=== PATIENT | female | born 1985 | race Caucasian/White ===

== ENCOUNTER 2022-08-01 10:18 | Outpatient (CLI) | payer OTHER, SELFPAY ==
--- OUTSIDE RECORDS SUMMARY | 2022-08-01 10:21 | XMS_ITS ---
:1985 Author Organization [facility] Address [address] [place] [address] Care Team Providers Name Role Phone Elodia Chakraborty Unavailable Unavailable PROBLEMS Unknown Problems ALLERGIES No Information IMMUNIZATIONS No Known Immunizations SOCIAL HISTORY Never Assessed REASON FOR REFERRAL FUNCTIONAL STATUS PLAN OF CARE VITAL SIGNS MEDICATIONS Unknown Medications PROCEDURES No Known procedures RESULTS No Results REASON FOR VISIT Insurance Providers [facility] Member Patient Patient Patient Patient Patient Subscriber Subscriber Subscriber Group Insurance Plan Plan Plan Plan ID Relationship Address Phone Name Date of ID Name Date of No Type Insurance Insurance Insurance Coverage to Subscriber Address Phone Name Dates Medica [address] self Felisha [id number] [phone] (Ins. [id number] Salt (Ins. Bryan Bill) [facility] [id number]
[2022-08-01 13:45] LABS: Cholesterol* 218 mg/dL (90-199)
[2022-08-01 13:46] LABS: HDL Cholesterol* 73 mg/dL (>=50); LDL Cholesterol Calculated 133 mg/dL (<100); Triglycerides* 59 mg/dL (40-149)
[2022-08-01 14:28] LABS: Vitamin D 25 Hydroxy* 31 ng/mL (30-80)
== END 2022-08-01 10:19 | disposition home or self-care (01) ==
PROVIDERS: PCP Physician Assistant Medical; Visit Provider Physician Assistant Medical
DX: Z00.00 Encounter for general adult medical examination without abnormal findings (principal); E78.5 Hyperlipidemia, unspecified; N39.3 Stress incontinence (female) (male); Z13.29 Encounter for screening for other suspected endocrine disorder; Z13.21 Encounter for screening for nutritional disorder; R42 Dizziness and giddiness; F41.9 Anxiety disorder, unspecified; F32.A Depression, unspecified
CPT/HCPCS: 80061; 82306; 84443

== ENCOUNTER 2023-12-22 08:45 | Outpatient (CLI) | payer OTHER, SELFPAY ==
--- OUTSIDE RECORDS SUMMARY | 2023-12-22 17:58 | XMS_ITS | Encounter Summary ---
Author Organization [place] Address [address] [place] [address]. 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 Hold For Preauthorization: Aleshia Kearns GC [address] [place] [address] Referral ID Status Reason Start Date Expiration Date V isits Requested Visits Authorized [id number] Pending Review 12/06/2023 12/05/2024 1 1 Reason for Visit * Reason Onset Date Comments Clinic Care Coordination - Follow-up 12/06/2023 Redraw needed Encounter Details Date Type Department Care Team (Late st Contact Info) Description 12/06/2023 Telephone [facility] Maternal Medicine [facility] [address] [place] [address] Aleshia Kearns GC [address] [place] [address] Clinic Care Coordination - Follow-up (Redraw needed) Social History Tobacco Use Types Packs/Day Years Used Date Smoking Tobacco: Never Smokeless Tobacco: Never Alcohol Use Standard Drinks/Week Comments Not Currently 1 (1 standard drink = 0.6 oz pur e alcohol) [place] Depression Scale Answer Date Recorded Last EPDS Total Score Not on file 11/12/2021 The thought of harming myself has occurred to me . 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 I contacted [facility] outpatient lab to provide this information and ensure they draw correct tube at redraw. I called Felisha and left a voicemail that a redraw is needed. A new order is placed. 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
--- OUTSIDE RECORDS SUMMARY | 2023-12-22 17:58 | XMS_ITS | Encounter Summary ---
Author Organization [place] Address [address] [place] [address]. [place] [address] Care Team Providers Care Shadow Graph Weight Operator Name Role Phone Gemma Thomson PA-C Primary Care Provider Garett Paulino MD Unavailable [phone] Encounter Details Date Type Department Care Team (Late st Contact Info) Description 10/25/2023 [facility] Medical Advice [facility] [address] [place] [address] Adam Paris Social History Tobacco Use Types Packs/Day Years Used Date Smoking Tobacco: Never Smokeless Tobacco: Never Alcohol Use Standard Drinks/Week Comments Not Currently 1 (1 standard drink = 0.6 oz pur e alcohol) Kelly Depression Scale Answer Date Recorded Last EPDS [...] file Travel History Travel Start Travel End [place] 11/03/2023 12/04/2023 documented as of this encounter Plan of Treatment Not on file documented as of this encounter Visit Diagnoses Not on filedocumented in this encounter Care Teams Shadow Graph Weight Operator Relationship Specialty Start Date End Date Gemma Thomson PA-C [facility] [address] [place], [place] [id number] PCP - General Physician Bowling Teacher 09/07/20 Garett Paulino MD [address] [place] [address] Assigned Pediatric Specialist Provider 08/04/23 documented as of this encounter
--- OUTSIDE RECORDS SUMMARY | 2023-12-22 17:58 | XMS_ITS | Encounter Summary ---
Author Organization [place] Address [address] [place] [address]. [place] [address] Care Team Providers Care Educational Manager Name Role Phone Gemma Thomson PA-C Primary Care Provider Garett Paulino MD Unavailable [phone] Encounter Details Date Type Department Care Team (Latest Contact Info) Description 12/22/2023 Travel Social History Tobacco Use Types Packs/Day Years Used Date Smoking Tobacco: Never Smokeless Tobacco: Never Alcohol Use Standard Drinks/Week Comments Not Currently 1 (1 standard drink = 0.6 oz pur e alcohol) [place] Depression Scale Answer Date Recorded Last EPDS [...] file Travel History Travel Start Travel End [place] 11/03/2023 12/04/2023 documented as of this encounter Plan of Treatment Not on file documented as of this encounter Visit Diagnoses Not on filedocumented in this encounter Care Teams Educational Manager Relationship Specialty Start Date End Date Gemma Thomson PA-C [facility] [address] [place] [address] PCP - General Physician Collar Packer 09/07/20 Garett Paulino MD [address] [place] [address] Assigned Pediatric Specialist Provider 08/04/23 documented as of this encounter
--- OUTSIDE RECORDS SUMMARY | 2023-12-22 17:58 | XMS_ITS | Encounter Summary ---
Author Organization [place] Address [address] [place] [address]. [place] [address] Care Team Providers Care Contract Administration Specialist Name Role Phone Gemma Thomson PA-C Primary Care Provider Garett Paulino MD Unavailable Encounter Details Date Type Department Care Team (Late st Contact Info) Description 11/22/2023 Telephone [facility] [address] [place] [address] Adam Paris Social History Tobacco Use Types Packs/Day Years Used Date Smoking Tobacco: Never Smokeless Tobacco: Never Alcohol Use Standard Drinks/Week Comments Not Currently 1 (1 standard drink = 0.6 oz pur e alcohol) [place] Depression Scale Answer Date Recorded Last EPDS [...] file Travel History Travel Start Travel End [place] 11/03/2023 12/04/2023 documented as of this encounter Progress Notes * Adam Paris - 11/22/2023 4:09 PM CDT I called Felisha to follow up on previous messages left regarding the prior authorization for her genetic testing. No authorization is required. However, I was unable to reach Felisha and left her a voice message with my name, direct line, and brief reason for my call. Adam Paris Genomics Billing Filter Helper [facility] Molecular Diagnostics Laboratory [facility] [address] [facility] [place] [address] [email or web address] Office: [phone] Fax: Employed by [place] [employer] documented in this encounter Plan of Treatment Not on file documented as of this encounter Visit Diagnoses Not on filedocumented in this encounter Care Teams Contract Administration Specialist Relationship Specialty Start Date End Date Gemma Thomson PA-C [facility] [address] [place] [address] PCP - General Physician Conveyor Attendant 09/07/20 Garett Paulino MD [facility] [place] [address] Assigned Pediatric Specialist Provider 08/04/23 documented as of this encounter
--- OUTSIDE RECORDS SUMMARY | 2023-12-22 17:58 | XMS_ITS | Encounter Summary ---
Author Organization [place] Address [address] [place] [address]. [place] [address] Care Team Providers Care Printed Circuit Board Layout Designer Name Role Phone Gemma Thomson PA-C Primary Care Provider Lise Rodriguez MD Unavailable [phone] Dio Miramontes MD Unavailable [phone] Garett Paulino MD Unavailable Encounter Details Date Type Department Care Team (Late st Contact Info) Description 10/15/2021 External Order Results [facility] [address] [place] [address] Outside, Provider Social History Tobacco Use Types Packs/Day Years Used Date Smoking Tobacco: Never Smokeless Tobacco: Never Alcohol Use Standard Drinks/Week Comments Yes 1 (1 standard drink = 0.6 oz pur e alcohol) 4x weekly Comments Yes Sex and Gender Information Value Date Recorded Sex Assigned at Not on file Gender Identity Not on file Sexual Orientation Not on file Travel History Travel Start Travel End [place] 11/03/2023 12/04/2023 COVID-19 Exposure Response Date Recorded In the last 10 days, have yo u been in contact with someone who was confirmed or suspected to have Coronavirus/COVID-19? No / Unsure 09/24/2021 11:01 AM CDT documented as of this encounter Plan of Treatment Not on file documented as of this encounter Procedures Procedure Name Priority Date/Time Associated Diagnosis Comments GROUP B STREPTOCOCCUS (EXTERNAL RESULT) Routine 10/15/2021 4:31 PM CDT HEMOGLOBIN Routine 10/15/2021 4:31 PM CDT documented in this encounter Results * Hemoglobin (10/15/2021 4:31 PM CDT) Hemoglobin (External) 12.7 12.0 - 15.0 G/DL NON-INTERFACED (ONBASE SCANS) Comment:FINGERSTICK HEMOGLOB IN Blood 10/15/2021 4:31 PM CDT Narrative [facility] - 10/29/2021 11:14 AM CDT Verified by Marleni Valencia on 10/29/2021. Provider Outside LAB - BLOOD ORDERABL ES [facility] PFT NON-INTERFACED (ONBASE SCANS) * (ABNORMAL) Group B Streptococcus (External Result) (10/15/2021 4:31 PM CDT) Group B Streptococcus (External) Positive( A) NEGATIVE NON-INTERFACE D (ONBASE SCANS) 10/15/2021 4:31 PM CDT Narrative [facility] - 10/29/2021 11:14 AM CDT Verified by Marleni Valencia on 10/29/2021. Provider Outside LAB - HIM EXTERNAL R ESULT BREEZE PFT NON-INTERFACED (ONBASE SCANS) documented in this encounter Visit Diagnoses Not on filedocumented in this encounter Care Teams Printed Circuit Board Layout Designer Relationship Specialty Start Date End Date Gemma Thomson PA-C [facility] [address] [place] [address] PCP - General Physician Skoog Patching Machine Operator 09/07/20 Lise Rodriguez MD [address] [address] Assigned OBGYN Provider 07/11/21 Dio Miramontes MD [address] [place] [address] Assigned OBGYN Provider 01/08/2203/31 Garett Paulino MD [address] [place] [address] Assigned Pediatric Specialist Provider 08/04/23 documented as of this encounter
--- OUTSIDE RECORDS SUMMARY | 2023-12-22 17:58 | XMS_ITS | Encounter Summary ---
Author Organization [place] Address [address] [place] [address]. [place] [address] Care Team Providers Care Dynamite Cartridge Crimper Name Role Phone Gemma Thomson PA-C Primary Care Provider Garett Paulino MD Unavailable Reason for Visit * Reason Onset Date Comments Clinic Care Coordination - Follow-up 11/01/2023 Prior authorization request Encounter Details Date Type Department Care Team (Late st Contact Info) Description 11/01/2023 Telephone [facility] [place] [address] [facility] [address] [place] [address] Aleshia Kearns, GC [address] [place] [address] Clinic Care Coordination - Follow-up (Prior authorization request) Social History Tobacco Use Types Packs/Day Years Used Date Smoking Tobacco: Never Smokeless Tobacco: Never Alcohol Use Standard Drinks/Week Comments Not Currently 1 (1 standard drink = 0.6 oz pur e alcohol) [place] Depression Scale Answer Date Recorded Last EPDS [...] Travel Start Travel End [place] 11/03/2023 12/04/2023 documented as of this encounter Miscellaneous Notes * Telephone Encounter - Aleshia Kearns GC - 11/01/2023 3:06 PM CDT November 01, 2023 I called Felisha and left her a voicemail regarding prior authorization for genetic testing. Shared that there is a letter regarding cost for familial variant testing in her Mychart. If she has questions, she can call me back. Aleshia Kearns, MS, [facility] Licensed Genetic Counselor [facility] Pager: [phone] Office: [phone] documented in this encounter Plan of Treatment Not on file documented as of this encounter Visit Diagnoses Not on filedocumented in this encounter Care Teams Dynamite Cartridge Crimper Relationship Specialty Start Date End Date Gemma Thomson PA-C [facility] [address] [place] [address] PCP - General Physician Shell Freezing Machine Operator 09/07/20 Garett Paulino MD [facility] [address] [address] Assigned Pediatric Specialist Provider 08/04/23 documented as of this encounter
--- OUTSIDE RECORDS SUMMARY | 2023-12-22 17:58 | XMS_ITS | Encounter Summary ---
Author Organization [place] Address [address] [place] [address]. [place] [address] Care Team Providers Care Manager Of Program Name Role Phone Gemma Thomson PA-C Primary Care Provider Gaertt Paulino MD Unavailable [phone] Encounter Details Date Type Department Care Team (Latest Contact Info) Description 12/04/2023 Travel Social History Tobacco Use Types Packs/Day Years Used Date Smoking Tobacco: Never Smokeless Tobacco: Never Alcohol Use Standard Drinks/Week Comments Not Currently 1 (1 standard drink = 0.6 oz pur e alcohol) [place] Depression Scale Answer Date Recorded Last EPDS [...] on filedocumented in this encounter Care Teams Manager Of Program Relationship Specialty Start Date End Date Gemma Thomson PA-C [facility] [address] [place] [address] PCP - General Physician Design Engineering Technician 09/07/20 Garett Paulino MD [address] [place] [address] Assigned Pediatric Specialist Provider 08/04/23 documented as of this encounter
--- OUTSIDE RECORDS SUMMARY | 2023-12-22 17:58 | XMS_ITS | Encounter Summary ---
Author Organization [place] Address [address] [place] [address]. [place] [address] Care Team Providers Care Straightener And Aligner Name Role Phone Gemma Thomson PA-C Primary Care Provider Garett Paulino MD Unavailable Encounter Details Date Type Department Care Team (Late st Contact Info) Description 11/02/2023 Telephone [facility] [address] [place] [address] Adam Paris Social History Tobacco Use Types Packs/Day Years Used Date Smoking Tobacco: Never Smokeless Tobacco: Never Alcohol Use Standard Drinks/Week Comments Not Currently 1 (1 standard drink = 0.6 oz pur e alcohol) [place] Depression Scale Answer Date Recorded Last EPDS [...] file Travel History Travel Start Travel End [place] 11/03/2023 12/04/2023 documented as of this encounter Progress Notes * Adam Paris - 11/02/2023 2:06 PM CDT I called Felisha to follow up on the insurance update for her genetic testing as I have not heard from patient. However, I was unable to reach Felisha. I left a voicemail with my name, phone number, and a brief reason for calling. Adam Paris Genomics Billing Health Assistant [facility] Molecular Diagnostics Laboratory [facility] [address] [facility] [address] [place] [address] [email or web address] Office: [phone] Fax: Employed by [employer] documented in this encounter Plan of Treatment Not on file documented as of this encounter Visit Diagnoses Not on filedocumented in this encounter Care Teams Straightener And Aligner Relationship Specialty Start Date End Date Gemma Thomson PA-C [facility] [address] [place] [address] PCP - General Physician Magnetic Resonance Technologist 09/07/20 Garett Paulino MD [address] [place] [address] Assigned Pediatric Specialist Provider 08/04/23 documented as of this encounter
--- OUTSIDE RECORDS SUMMARY | 2023-12-22 17:58 | XMS_ITS | Encounter Summary ---
Author Organization [facility] Address [address] [place] [address]. [place] [address] Care Team Providers Care Insurance Agency Sales Manager Name Role Phone Gemma Thomson PA-C Primary Care Provider Lise Rodriguez MD Unavailable [phone] Dio Miramontes MD Unavailable [phone] Garett Paulino MD Unavailable [phone] Encounter Details Date Type Department Care Team (Late st Contact Info) Description 04/23/2021 External Order Results [facility] [address] [place] [address] Outside, Provider Social History Tobacco Use Types Packs/Day Years Used Date Smoking Tobacco: Never Smokeless Tobacco: Never Alcohol Use Standard Drinks/Week Comments Yes 1 (1 standard drink = 0.6 oz pur e alcohol) 4x weekly Sex and Gender Information Value Date Recorded Sex Assigned at Not on file Gender Identity Not on file Sexual Orientation Not on file Travel History Travel Start Travel End [place] 11/03/2023 12/04/2023 documented as of this encounter Plan of Treatment Not on file documented as of this encounter Procedures Procedure Name Priority Date/Time Associated Diagnosis Comments HEPATITIS B SURFACE ANTIGEN (EXTERNAL RESULT) Routine 04/23/2021 4:17 PM FINANCIAL AID ADMINISTRATOR URINE CULTURE (OB EXTERNAL RESULT) Routine 04/23/2021 4:17 PM FINANCIAL AID ADMINISTRATOR TREPONEMA PALLIDUM ANTIBODY (RPR) (EXTERNAL RESULT) Routine 04/23/2021 4:17 PM FINANCIAL AID ADMINISTRATOR ABO & RH (EXTERNAL RESULT) Routine 04/23/2021 4:17 PM FINANCIAL AID ADMINISTRATOR GONORRHEA (EXTERNAL RESULT) Routine 04/23/2021 4:17 PM FINANCIAL AID ADMINISTRATOR CHLAMYDIA TRACHOMATIS PCR (EXTERNAL RESULT) Routine 04/23/2021 4:17 PM FINANCIAL AID ADMINISTRATOR HIV ANTIGEN ANTIBODY COMBO Routine 04/23/2021 4:17 PM FINANCIAL AID ADMINISTRATOR CBC WITH PLATELETS & DIFFERENTIAL Routine 04/23/2021 4:17 PM FINANCIAL AID ADMINISTRATOR HEPATITIS C ANTIBODY Routine 04/23/2021 4:17 PM FINANCIAL AID ADMINISTRATOR documented in this encounter Results * ABO & RH (External Result) (04/23/2021 4:17 PM FINANCIAL AID ADMINISTRATOR) ABO (External) A NON-I NTERFACE D (ONBASE SCANS) Rh (External) Positive NON-IN TERFACE D (ONBASE SCANS) Comment:Antibody Screen: Neg ative 04/23/2021 4:17 PM FINANCIAL AID ADMINISTRATOR Narrative BREEZE PFT - 05/10/2021 7:45 AM FINANCIAL AID ADMINISTRATOR Verified by Lino Mondragon on 05/10/2021. Patient Reported LAB - HIM EXTERNAL R ESULT JSSara PFT NON-INTERFACED (ONBASE SCANS) * Urine Culture (OB External Result) (04/23/2021 4:17 PM FINANCIAL AID ADMINISTRATOR) Urine Culture OB Nurse Interpretation (External Result) No growth NON-INTERF AC ED (ONBASE SCANS) 04/23/2021 4:17 PM FINANCIAL AID ADMINISTRATOR Narrative BREEZE PFT - 05/10/2021 7:45 AM FINANCIAL AID ADMINISTRATOR Verified by Lino Mondragon on 05/10/2021. Patient Reported LAB - HIM EXTERNAL R ESULT BREEZE PFT NON-INTERFACED (ONBASE SCANS) * Gonorrhea (External Result) (04/23/2021 4:17 PM FINANCIAL AID ADMINISTRATOR) [facility] N Gonorrhea PCR Negative NEGATIVE NON-INTERFACE D (ONBASE SCANS) 04/23/2021 4:17 PM FINANCIAL AID ADMINISTRATOR Narrative BREEZE PFT - 05/10/2021 7:45 AM FINANCIAL AID ADMINISTRATOR Verified by Lino Mondragon on 05/10/2021. Patient Reported LAB - HIM EXTERNAL R ESULT Performing Organization Address City/[facility]/ZIP Co de Phone Number BREEZE PFT NON-INTERFACED (ONBASE SCANS) * Chlamydia Trachomatis PCR (External Result) (04/23/2021 4:17 PM FINANCIAL AID ADMINISTRATOR) [facility] Chlamydia Trachomatis PCR Negative NEGATIVE NON-INTERFAC E D (ONBASE SCANS) 04/23/2021 4:17 PM FINANCIAL AID ADMINISTRATOR Narrative BREEZE PFT - 05/10/2021 7:45 AM FINANCIAL AID ADMINISTRATOR Verified by Lino Mondragon on 05/10/2021. Patient Reported LAB - HIM EXTERNAL R ESULT Performing Organization Address City/[facility] Co de Phone Number BREEZE PFT NON-INTERFACED (ONBASE SCANS) * (ABNORMAL) CBC with Platelets & Differential (04/23/2021 4:17 PM FINANCIAL AID ADMINISTRATOR) [facility] WBC Count (External) 6.7 4.3 - 10.8 K/ul NON-INTERFACE D (ONBASE SCANS) RBC Count (External) 3.75(L) 4.20 - 5.40 M/ul NON-INTERFACE D (ONBASE SCANS) Hemoglobin (External) 12.3 12.0 - 16.0 g/dl NON-INTERFACE D (ONBASE SCANS) Hematocrit (External) 35.7(L) 36.0 - 48.0 % NON-INTERFACE D (ONBASE SCANS) MCV (External) 95 80 - 100 fl NON-INTERFACE D (ONBASE SCANS) MCH (External) 33 27 - 33 pg NON- INTERFACE D (ONBASE SCANS) MCHC (External) 35 33 - 36 g/dl NON-INTERFACE D (ONBASE SCANS) RDW (External) 12.0 11.5 - 14.5 % NON-INTERFACE D (ONBASE SCANS) Platelet Count (External) 217 150 - 400 K/ul NON-INTERFACE D (ONBASE SCANS) % Neutrophils (External) 71.0 % NON-INTERFACE D (ONBASE SCANS) % Immature Granulocytes (External) 0.3 <=1.0 % NON-INTERFACE D (ONBASE SCANS) % Lymphocytes (External) 21.6 % NON-INTERFACE D (ONBASE SCANS) % Monocytes (External) 6.3 % NON-INTERFACE D (ONBASE SCANS) % Eosinophils (External) 0.4 % NON-INTERFACE D (ONBASE SCANS) % Basophils (External) 0.4 % NON-INTERFACE D (ONBASE SCANS) Absolute Neutrophils (External) 4.75 1.80 - 7.80 K/uL NON-INTERFACE D (ONBASE SCANS) Absolute Immature Granulocytes (External) 0.02 K/uL NON-INTERFACE D (ONBASE SCANS) Absolute Lymphocytes (External) 1.45 1.00 - 4.00 K/uL NON-INTERFACE D (ONBASE SCANS) Absolute Monocytes (External) 0.42 0.0 - 1.0 K/uL NON-INTERFACE D (ONBASE SCANS) Absolute Eosinophils (External) 0.03 0.00 - 0.45 K/uL NON-INTERFACE D (ONBASE SCANS) Absolute Basophils (External) 0.03 0.00 - 0.20 K/uL NON-INTERFACE D (ONBASE SCANS) Nucleated RBCs (External) 0.0 0.0 - 0.0 /100 WBC NON-INTERFACE D (ONBASE SCANS) Blood 04/23/2021 4:17 PM FINANCIAL AID ADMINISTRATOR Narrative GEOVANY RACHEL - 05/10/2021 7:39 AM FINANCIAL AID ADMINISTRATOR Verified by Carlitos Sweeney on 05/10/2021. Patient Reported LAB - BLOOD ORDERABL ES GEOVANY PFJaycee NON-INTERFACED (ONBASE SCANS) * Treponema Pallidum Antibody (RPR) (External Result) (04/23/2021 4:17 PM FINANCIAL AID ADMINISTRATOR) Treponema Palldum Antibody (External) Nonreactive Nonreactive NON-INTERFAC ED (ONBASE SCANS) 04/23/2021 4:17 PM FINANCIAL AID ADMINISTRATOR Narrative BREEZE PFT - 05/10/2021 7:34 AM FINANCIAL AID ADMINISTRATOR Verified by Carlitos Sweeney on 05/10/2021. Patient Reported LAB - HIM EXTERNAL R ESULT BREEZE PFT NON-INTERFACED (ONBASE SCANS) * Hepatitis B Surface Antigen (External Result) (04/23/2021 4:17 PM FINANCIAL AID ADMINISTRATOR) Hepatitis B Surface Antigen (External) Non-Reacti ve NON-REACTI VE NON-INTERFACE D (ONBASE SCANS) 04/23/2021 4:17 PM FINANCIAL AID ADMINISTRATOR Narrative BREEZE PFT - 05/10/2021 7:34 AM FINANCIAL AID ADMINISTRATOR Verified by Carlitos Sweeney on 05/10/2021. Patient Reported LAB - HIM EXTERNAL R ESULT Performing Organization Address City/[facility] Co de Phone Number BREEZE PFT NON-INTERFACED (ONBASE SCANS) * Hepatitis C antibody (04/23/2021 4:17 PM FINANCIAL AID ADMINISTRATOR) Hepatitis C Antibody (External) nonreactive nonreactive NON-INTERFAC ED (ONBASE SCANS) Blood 04/23/2021 4:17 PM FINANCIAL AID ADMINISTRATOR Narrative BREEZE PFT - 05/10/2021 7:34 AM FINANCIAL AID ADMINISTRATOR Verified by Carlitos Sweeney on 05/10/2021. Patient Reported LAB - BLOOD ORDERABL ES Performing Organization Address City/[facility]/ZIP Co de Phone Number BREEZE PFT NON-INTERFACED (ONBASE SCANS) * HIV Antigen Antibody Combo (04/23/2021 4:17 PM FINANCIAL AID ADMINISTRATOR) HIV 1&2 Antibody (External) Non-Reacti ve NON-REACTI VE NON-INTERFACE D (ONBASE SCANS) Blood 04/23/2021 4:17 PM FINANCIAL AID ADMINISTRATOR Narrative GEOVANY PFT - 05/10/2021 7:34 AM FINANCIAL AID ADMINISTRATOR Verified by Carlitos Sweeney on 05/10/2021. Patient Reported LAB - BLOOD ORDERABL ES GEOVANY PFT NON-INTERFACED (ONBASE SCANS) documented in this encounter Visit Diagnoses Not on filedocumented in this encounter Care Teams Insurance Agency Sales Manager Relationship Specialty Start Date End Date Gemma Thomson PA-C [facility] [address] [place] [address] PCP - General Physician Design Teacher 09/07/20 Lise Rodriguez MD [address] [place] [address] [id number] Assigned OBGYN Provider 07/11/21 Dio Miramontes MD [address] [address] Assigned OBGYN Provider 01/08/2203/31 Garett Paulino MD [address] [place] [address] [id number] Assigned Pediatric Specialist Provider 08/04/23 documented as of this encounter
--- OUTSIDE RECORDS SUMMARY | 2023-12-22 17:58 | XMS_ITS | Referral Summary ---
Author Organization [facility] Address [address] [place] [address]. [place] [address] Care Team Providers Care Casualty Claim Adjuster Name Role Phone Gemma Thomson PA-C Primary Care Provider Garett Paulino MD Unavailable Encounters Date Type Department Care Team Description 12/22/2023 Travel 12/22/2023 10:35 AM CDT Lab [facility] [address] [place] [phone] IUFD at 20 weeks or more of gestation 12/06/2023 Telephone [facility] Medicine [facility] [address] [facility] [address] [place] [phone] Aleshia Kearns, Clinic Care Coordination - Follow-up (Redraw needed) 12/04/2023 Travel 12/04/2023 11:20 AM CDT Lab [facility] [address] [place] [phone] Family history of genetic disease carrier 12/01/2023 Telephone [facility] Medicine [facility] [address] [facility] [address] [place] [phone] Aleshia Kearns, Clinic Care Coordination - Follow-up (MYH7 testing) 11/22/2023 Telephone [facility] [address] [place] [address] Adam aPris 11/02/2023 Telephone [facility] [address] [place] [address] Adam Paris 11/01/2023 Telephone [facility] Maternal Medicine [facility] [address] [facility] [address] [place] [address] Aleshia Kearns GC Clinic Care Coordination - Follow-up (Prior authorization request) 10/25/2023 MyC Medical Advice [facility] [address] [place] [address] Adam Paris 10/12/2023 Telephone [facility] Medicine [facility] [address] [facility] [address] [place] [address] Aleshia Kearns GC Results (Cardiomyopathy panel results from IUFD) from Last 3 Months Allergies No known active allergies Medications Medication Sig Dispensed Refills Start Date End Date Status sertraline (ZOLOFT) 50 MG tabletIndications:G eneralized Anxiety Disorder Take 50 mg by mouth daily Active famotidine (PEPCID) 20 MG tabletIndications:H eartburn Take 20 mg by mouth 2 times daily Active doxylamine (UNISOM) 25 MG TABS tablet Take 25 mg by mouth At Bedtime Active MV-Min-Fe Fum-FA-DHA ( 1 PO) Take 1 tablet by mouth daily Active fluticasone (FLONASE) 50 MCG/ACT nasal spray [place] 1-2 sprays in nostril daily Active docusate sodium (COLACE) 100 MG capsuleIndications: (spontaneous vaginal delivery) Take 1 capsule (100 mg) by mouth daily 11/13/2021 Active Additional Information Patient not taking.Reported on 02/24/2022 ferrous sulfate (FEROSUL) 325 (65 Fe) MG tabletIndications:S VD (spontaneous vaginal delivery) Take 1 tablet (325 mg) by mouth daily 11/13/2021 Active Additional Information Patient not taking.Reported on 02/24/2022 ondansetron (ZOFRAN ODT) 4 MG ODT tabIndications:Jarret gn paroxysmal positional vertigo of left ear Take 1 tablet (4 mg) by mouth every 8 hours as needed for nausea 15 tablet 02/24/2022 Active Active Problems Patient Care Coordination No te Formatting of this note is d ifferent from the original. [facility] Care Plan: For details of imaging, genetic testing and consultations, please see the maternal medical record: Felisha Adams MR#:[id number] Delivery hospital: [facility] DIAGNOSIS: DIAGNOSIS / DIAGNOSES: 1) CHD GENETIC (and other) TESTING: NIPT 06/13/23 PERTINENT MATERNAL CONDITIONS: 1) x1 CARE PLAN: 1) Ultrasounds - 2) Other Imaging - echo 06/14/22 3) surveillance - weekly BPP @ 32 4) Relocation - 5) care with - SDOB 6) Labs - (look in media tab for results) Blood type: A Pos Ab screen: neg Rhogam: n/a HepBSAg: neg Rubella: RI RPR: NR HIV: neg Hep C: neg GCT: GBS: 7) Vaccines: Tdap- Flu Vaccine- RSV- 8) PHQ-9: 9) care team and consultations - A) Genetic Counselor - Aleshia Kearns B) Neonatology - TBD C) Social Work - D) CV surgery DELIVERY PLAN: 1) Hospital - [facility] 2) Gestational age - 3) Route - 4) Notifications in labor - 5) Genetics/specimen collection for baby: BABY PLAN: 1) Baby to go to 2) Imaging to be done - A) immediately after - B) prior to hospital discharge - C) after discharge from the hospital - 3) Consults to be done - A) immediately after - B) prior to hospital discharge - C) after discharge from the hospital - 4) Medications - REFERRING PROVIDER(S): 1) Primary OB Provider: TROY Olivares 2) Other Sub-Specialty Provider: 3) Anticipated Pediatric Provider: DEMOGRAPHICS: Patient contact info: Waqar Munoz [facility] [id number] Partner's name: Baby's name: Problem Noted Date Diagnosed Date IUFD at 20 weeks or more of gestation 06/29/2023 Indication for care in labor or delivery 024 Anemia due to blood loss, acute 11/12/2021 (spontaneous vaginal delivery) 11/11/2021 Resolved Problems Problem Noted Date Diagnosed Date Resolved Date Indication for care in labor or delivery 11/10/2021 11/12/2021 Encounter for triage in patient 11/03/2021 11/12/2021 Social History Tobacco Use Types Packs/Day Years Used Date Smoking Tobacco: Never Smokeless Tobacco: Never Alcohol Use Standard Drinks/Week Comments Not Currently 1 (1 standard drink = 0.6 oz pur e alcohol) [place] Depression Scale Answer Date Recorded Last EPDS [...] Travel Start Travel End [place] 11/03/2023 12/04/2023 Last Filed Vital Signs Vital Sign Reading Time Taken Comments Blood Pressure 102/66 06/29/2023 10:03 AM RECORDS MANAGEMENT TECHNICIAN Pulse 76 02/24/2022 6:21 PM CDT Temperature 36.3 ??C (97.4 ??F) 06/29/2023 10:[address] Respiratory Rate 15 06/29/2023 10:03 AM RECORDS MANAGEMENT TECHNICIAN Oxygen Saturation 98% 02/24/2022 6:21 PM CDT Inhaled Oxygen Concentration - - Weight 68 kg (150 lb) 06/28/2023 12:12 AM RECORDS MANAGEMENT TECHNICIAN Height 167.6 cm (5' 6) 06/28/2023 12:12 AM RECORDS MANAGEMENT TECHNICIAN Body Mass Index 24.21 06/28/2023 12:12 AM RECORDS MANAGEMENT TECHNICIAN Plan of Treatment Not on file Procedures Procedure Name Priority Date/Time Associated Diagnosis Comments HER[facility] [employer]OMICS HOLD FOR PREAUTHORIZATION Routine 12/04/2023 11:31 AM CDT Family history of genetic disease carrier HIV ANTIGEN ANTIBODY COMBO Routine 04/04/2023 10:53 AM CDT Supervision of elderly multigravida, first trimester HEPATITIS C ANTIBODY Routine 04/04/2023 10:37 AM CDT Supervision of elderly multigravida, first trimester COMPREHENSIVE METABOLIC PANEL STAT 11/17/2021 3:07 AM CDT from Last 3 Months or Most Recently Relevant to Health Maintenance Results * Hereditary [employer] Hold For Preauthorization: (12/04/2023 11:31 AM CDT) Interpretation Sample processed in lab for DNA for genetic testing. Insurance preauthorization will be initiated. Contact lab with questions, [phone]. 12/05/2023 9:14 AM CDT [facility] (LDL) Blood STRUCTURE OF RIGHT UPPER LIMB / Unknown Venipuncture / Unknown 12/04/2023 11:31 AM CDT 12/04/2023 11:31 AM CDT Aleshia Kearns GC LAB - GENOMICS [facility] (LDL) [facility] [address] [facility], Room [address] [place] [address] * HIV Antigen Antibody Combo [place] (04/04/2023 10:53 AM CDT) HIV Antigen Antibody Combo Nonreactive Nonreactive 04/05/2023 12:00 PM CDT [facility] DO Comment:HIV-1 p24 Ag & HIV-1 /HIV-2 Ab Not Detected Blood BLOOD SPECIMEN / Unknown Client Draw / Unknown 04/04/2023 10:53 AM CDT 04/04/2023 3:46 PM CDT Gilda May MD LAB - BLOOD ORDERABL ES [facility]ENDO [facility]Endo [address] [facility], [address] [place] [address] * Hepatitis C antibody (04/04/2023 10:37 AM CDT) Hepatitis C Antibody Nonreactive Nonreactive 04/05/2023 11:21 AM CDT [facility] DO Blood BLOOD SPECIMEN / Unknown Client Draw / Unknown 04/04/2023 10:37 AM CDT 04/04/2023 3:46 PM CDT Narrative [facility] - 04/05/2023 11:21 AM CDT Assay performance characteristics have not been established for newborns, infants, and children. Gilda May MD LAB - BLOOD ORDERABL ES [facility]/ENDO Specialty Core/Prot/Endo [address] [facility], [address] [phone] * (ABNORMAL) Comprehensive metabolic panel (11/17/2021 3:07 AM CDT) Sodium 139 133 - 144 mmol/L 11/17/2021 3:46 AM CDT [facility] Potassium 3.7 3.4 - 5.3 mmol/L 11/17/2021 3:46 AM CDT [facility] Chloride 111(H) 94 - 109 mmol/L 11/17/2021 3:46 AM CDT [facility] Carbon Dioxide (CO2) 26 20 - 32 mmol/L 11/17/2021 3:46 AM CDT [facility] Anion Gap 2(L) 3 - 14 mmol/L 11/17/2021 3:46 AM CDT [facility] Urea Nitrogen 15 7 - 30 mg/dL 11/17/2021 3:46 AM CDT [facility] Creatinine 0.76 0.52 - 1.04 mg/dL 11/17/2021 3:46 AM CDT [facility] Calcium 8.5 8.5 - 10.1 mg/dL 11/17/2021 3:46 AM CDT [facility] Glucose 112(H) 70 - 99 mg/dL 11/17/2021 3:46 AM CDT [facility] Alkaline Phosphatase 146 40 - 150 U/L 11/17/2021 3:46 AM CDT [facility] AST 36 0 - 45 U/L 11/17/2021 3:46 AM CDT [facility] ALT 73(H) 0 - 50 U/L 11/17/2021 3:46 AM CDT [facility] Protein Total 6.7(L) 6.8 - 8.8 g/dL 11/17/2021 3:46 AM CDT [facility] Albumin 2.7(L) 3.4 - 5.0 g/dL 11/17/2021 3:46 AM CDT [facility] Bilirubin Total 0.4 0.2 - 1.3 mg/dL 11/17/2021 3:46 AM CDT [facility] GFR Estimate >90 >60 mL/min/1.7 3m2 11/17/2021 3:46 AM CDT [facility] Comment:Effective May 132020 eGFRcr in adults is calculated using the 2020 CKD-EPI creatinine equation which includes age and gender (Karl et al., NEJM, DOI: 10.1056/FCDPuf4666475) Blood BLOOD SPECIMEN / Unknown Venipuncture / Unknown 11/17/2021 3:07 AM CDT 11/17/2021 3:23 AM CDT Martinez Briones MD LAB - BLOOD ORDERABL ES [facility] [address] [facility] Lab (1st floor, no room number) [place] [address], [facility] [phone] from Last 3 Months or Most Recently Relevant to Health Maintenance Advance Directives For more information, please contact: [phone] * Full Code (Latest Code Status on File) Date Activated Date Inactivated Comments 11/11/2021 1:31 PM 11/12/2021 3:43 PM All basic and advanced life-sustaining interventions are performed as appropriate Question Answer Comments Code status determined by: Discussion with patie nt/ legal decision maker * Full Code Date Activated Date Inactivated Comments 11/10/2021 12:21 AM 11/10/2021 11:48 PM All basic an d advanced life-sustaining interventions are performed as appropriate Question Answer Comments Code status determined by: Discussion with patie nt/ legal decision maker Care Teams Casualty Claim Adjuster Relationship Specialty Start Date End Date Gemma Thomson PA-C [facility] [address] [place] [address] PCP - General Physician Concrete Finisher Apprentice 09/07/20 Garett Paulino MD [address] [address] Assigned Pediatric Specialist Provider 08/04/23
--- OUTSIDE RECORDS SUMMARY | 2023-12-22 17:58 | XMS_ITS | Encounter Summary ---
Author Organization [facility] Address [address] [place] [address]. [place] [address] Care Team Providers Care Mobile Equipment Mechanic Name Role Phone Gemma Thomson PA-C Primary Care Provider Garett Paulino MD Unavailable [phone] Encounter Details Date Type Department Care Team (Late st Contact Info) Description 06/20/2023 Office Visit [facility] Services - Heart & Vascular Service Line [address] [place] [phone] Garett Paulino MD [facility] [place] [phone] Social History Tobacco Use Types Packs/Day Years Used Date Smoking Tobacco: Never Smokeless Tobacco: Never Alcohol Use Standard Drinks/Week Comments Not Currently 1 (1 standard drink = 0.6 oz pur e alcohol) [place] Depression Scale Answer Date Recorded Last EPDS Total Score Not on file 11/12/2021 The thought of harming myself has occurred to me . Never 11/12/2021 Adolescent Education Answer Date Record ed Getting School Help Needed Not on file 03/04 Comments Yes Sex and Gender Information Value Date Recorded Sex Assigned at Not on file Gender Identity Not on file Sexual Orientation Not on file Travel History Travel Start Travel End [place] 11/03/2023 12/04/2023 documented as of this encounter Plan of Treatment Not on file documented as of this encounter Visit Diagnoses Not on filedocumented in this encounter Care Teams Mobile Equipment Mechanic Relationship Specialty Start Date End Date Gemma Thomson PA-C [facility] [address] [place] [address] PCP - General Physician Scenery Builder 09/07/20 Garett Paulino MD [address] [place] [id number] Assigned Pediatric Specialist Provider 08/04/23 documented as of this encounter
--- OUTSIDE RECORDS SUMMARY | 2023-12-22 17:58 | XMS_ITS | Encounter Summary ---
Author Organization [place] Address [address] [place] [address]. [place] [address] Care Team Providers Care Scientific Aide Name Role Phone Gemma Thomson PA-C Primary Care Provider Garett Paulino MD Unavailable Reason for Visit * Reason Onset Date Comments Clinic Care Coordination - Follow-up 12/01/2023 MYH7 testing Encounter Details Date Type Department Care Team (Late st Contact Info) Description 12/01/2023 Telephone [facility] Maternal Medicine Center [place] [address] [facility] [address] [place] [address] Aleshia Kearns, [address] [place] [address] Clinic Care Coordination - Follow-up (MYH7 testing) Social History Tobacco Use Types Packs/Day Years Used Date Smoking Tobacco: Never Smokeless Tobacco: Never Alcohol Use Standard Drinks/Week Comments Not Currently 1 (1 standard drink = 0.6 oz pur e alcohol) [place] Depression Scale Answer Date Recorded Last EPDS [...] file Travel History Travel Start Travel End [place] 11/03/2023 12/04/2023 documented as of this encounter Miscellaneous Notes * Telephone Encounter - Aleshia Kearns GC - 12/01/2023 10:20 AM CDT December 01, 2023 I called Felisha to check in regarding familial variant testing to see if she still desired to move forward with 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 Felisha stated that she was working with insurance prior to testing, and plans to come to [facility] outpatient lab next week with her partner, Donnell, for testing. No further questions. Lab hours were emailed to Felisha and Donnell. Aleshia Kearns MS, [facility] Licensed Genetic Counselor [facility] Pager: [phone] Office: [phone] documented in this encounter Plan of Treatment Not on file documented as of this encounter Visit Diagnoses Not on filedocumented in this encounter Care Teams Scientific Aide Relationship Specialty Start Date End Date Gemma Thomson PA-C [facility] [address] [place] [address] PCP - General Physician Group Fitness Assistant Department Head 09/07/20 Garett Paulino MD [address] [place] [phone] Assigned Pediatric Specialist Provider 08/04/23 documented as of this encounter
--- OUTSIDE RECORDS SUMMARY | 2023-12-22 17:58 | XMS_ITS | Encounter Summary ---
Author Organization [facility] Address [address] [place] [address]. [place] [address] Care Team Providers Care Computer Equipment Installer Name Role Phone Gemma Thomson PA-C Primary Care Provider Garett Paulino MD Unavailable [phone] Reason for Visit * Genomics (Routine) - Closed Specialty Diagnoses / Procedures Referred By Josep rios Referred To Contact Diagnoses Family history of genetic disease carrier Procedures [facility]red[facility] Hold For Preauthorization: Aleshia Kearns, GC [address] [place] [address] Referral ID Status Reason Start Date Expiration Date Visits Re quested Visits Authorized [id number] Closed 10/16/2023 10/15/2024 1 1 Encounter Details Date Type Department Care Team (Late st Contact Info) Description 12/04/2023 11:20 AM T Lab [facility] [address] [place] [phone] Family history of genetic disease carrier Social History Tobacco Use Types Packs/Day Years Used Date Smoking Tobacco: Never Smokeless Tobacco: Never Alcohol Use Standard Drinks/Week Comments Not Currently 1 (1 standard drink = 0.6 oz pur e alcohol) [place] Depression Scale Answer Date Recorded Last EPDS Total Score Not on file 11/12/2021 The thought of harming myself has occurred to me . Never 11/12/2021 Adolescent Education Answer Date Record ed Getting School Help Needed Not on file 09/23 /2023 Sex and Gender Information Value Date Recorded [...] CDT Family history of genetic disease carrier documented in this encounter Results * [facility]reditary Genomics Hold For Preauthorization: (12/04/2023 11:31 AM CDT) Interpretation Sample processed in lab for DNA for genetic testing. Insurance preauthorization will be initiated. Contact lab with questions, [phone]. 12/05/2023 9:14 AM CDT [facility] ([facility]) Blood STRUCTURE OF RIGHT UPPER LIMB / Unknown Venipuncture / Unknown 12/04/2023 11:31 AM CDT 12/04/2023 11:31 AM CDT Aleshia Kearns GC LAB - GENOMICS [facility] (LDL) [facility] [address] [facility], [address] documented in this encounter Visit Diagnoses Diagnosis Family history of genetic disease carrier documented in this encounter Care Teams Computer Equipment Installer Relationship Specialty Start Date End Date Gemma Thomson PA-C [facility] [address] [place] [address] PCP - General Physician Refinisher 09/07/20 Garett Paulino MD [address] [place] [address] Assigned Pediatric Specialist Provider 08/04/23 documented as of this encounter
--- OUTSIDE RECORDS SUMMARY | 2023-12-22 17:58 | XMS_ITS | Encounter Summary ---
Author Organization [facility] Address [address] [place] [address]. 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 Hold For Preauthorization: Aleshia Kearns, GC [address] [place] [address] Referral ID Status Reason Start Date Expiration Date V isits Requested Visits Authorized [id number] Pending Review 12/06/2023 12/05/2024 1 1 Encounter Details Date Type Department Care Team (Late st Contact Info) Description 12/22/2023 10:35 AM CDT Lab [facility] [address] [place] [phone] IUFD at 20 weeks or more of gestation Social History Tobacco Use Types Packs/Day Years Used Date Smoking Tobacco: Never Smokeless Tobacco: Never Alcohol Use Standard Drinks/Week Comments Not Currently 1 (1 standard drink = 0.6 oz pur e alcohol) [place] Depression Scale Answer Date Recorded Last EPDS [...] file Travel History Travel Start Travel End [place] 11/03/2023 12/04/2023 documented as of this encounter Plan of Treatment Pending Results Name Type Priority Associated Diagnoses Date /Time Hereditary Genomics Hold For Preauthorization: Molecular Lab Routine IUFD at 20 weeks or more of gestation 12/22/2023 10:38 AM CDT documented as of this encounter Visit Diagnoses Diagnosis IUFD at 20 weeks or more of gestation documented in this encounter Care Teams Dry Folder Cloth Relationship Specialty Start Date End Date Gemma Thomson PA-C [facility] [address] [place] [address] PCP - General Physician Global Technical Writer 09/07/20 Garett Paulino MD [facility] [address] Assigned Pediatric Specialist Provider 08/04/23 documented as of this encounter
--- OUTSIDE RECORDS SUMMARY | 2023-12-22 17:58 | XMS_ITS | Clinical Summary ---
Author Organization [facility] Address [address] [place] [address]. [place] [address] Care Team Providers Care Freight Manager Name Role Phone Gemma Thomson PA-C Primary Care Provider Garett Paulino MD Unavailable Allergies No known active allergies Medications Medication [...] Active fluticasone (FLONASE) 50 MCG/ACT nasal spray [place] 1-2 sprays in nostril daily Active docusate [...] see the maternal medical record: Felisha [place] MR#:[id number] Delivery hospital: [facility] DIAGNOSIS: DIAGNOSIS / DIAGNOSES: 1) CHD GENETIC [...] CV surgery DELIVERY PLAN: 1) Hospital - [facility] 2) Gestational age - 3) Route - [...] Anticipated Pediatric Provider: DEMOGRAPHICS: Patient contact info: [phone] [address] [facility] [address] Partner's name: Baby's name: Problem Noted Date Diagnosed Date IUFD at 20 weeks or more of gestation 06/29/2023 Indication for care in labor or delivery 024 Anemia due to blood loss, acute 11/12/2021 (spontaneous vaginal delivery) 11/11/2021 Resolved Problems Problem Noted Date Diagnosed Date Resolved Date Indication for care in labor or delivery 11/10/2021 11/12/2021 Encounter for triage in patient 11/03/2021 11/12/2021 Encounters Date Type Department Care Team Description 12/22/2023 10:35 AM CDT Lab [facility] [address] [place] [address] IUFD at 20 weeks or more of gestation 12/22/2023 Travel 12/06/2023 Telephone [facility] Medicine [facility] [address] [facility] [address] [place] [address] Aleshia Kearns GC Clinic Care Coordination - Follow-up (Redraw needed) 12/04/2023 11:20 AM CDT Lab [facility] [address] [place] [address] Family history of genetic disease carrier 12/04/2023 Travel 12/01/2023 Telephone [facility] Medicine [facility] [address] [facility] [address] [place] [address] Aleshia Kearns GC Clinic Care Coordination - Follow-up (MYH7 testing) 11/22/2023 Telephone [facility] [address] [place] [phone] Adam Paris 11/02/2023 Telephone [facility] [address] [place] [phone] Adam Paris 11/01/2023 Telephone [facility] Medicine [facility] [address] [facility] [address] [place] [address] Aleshia Kearns GC Clinic Care Coordination - Follow-up (Prior authorization request) 10/25/2023 MyC Medical Advice [facility] [address] [place] [phone] Adam Paris 10/12/2023 Telephone [facility] Medicine [facility] [address] [facility] [address] [place] [address] Stoner, Aleshia E, GC Results (Cardiomyopathy panel results from IUFD) from Last 3 Months Social History Tobacco Use Types Packs/Day Years Used Date Smoking Tobacco: Never Smokeless Tobacco: Never Alcohol Use Standard Drinks/Week Comments Not Currently 1 (1 standard drink = 0.6 oz pur e alcohol) [place] Depression Scale Answer Date Recorded Last EPDS [...] file Travel History Travel Start Travel End [place] 11/03/2023 12/04/2023 Last Filed Vital Signs Vital Sign Reading Time Taken Comments Blood Pressure 102/66 06/29/2023 10:03 AM CHEMICAL CELL CHANGER Pulse 76 02/24/2022 6:21 PM CDT Temperature 36.3 ??C (97.4 ??F) 06/29/2023 10:[address] Respiratory Rate 15 06/29/2023 10:03 AM CHEMICAL CELL CHANGER Oxygen Saturation 98% 02/24/2022 6:21 PM CDT Inhaled Oxygen Concentration - - Weight 68 kg (150 lb) 06/28/2023 12:12 AM CHEMICAL CELL CHANGER Height 167.6 cm (5' 6) 06/28/2023 12:12 AM CHEMICAL CELL CHANGER Body Mass Index 24.21 06/28/2023 12:12 AM CHEMICAL CELL CHANGER Plan of Treatment Health Maintenance Due Date Last Done Comments ADVANCE CARE PLANNING 1986 ANNUAL REVIEW OF HM ORDERS 1986 Pneumococcal Vaccine: Pediatrics (0 to 5 Years) and At-Risk Patients (6 to 64 Years) (1 of 2 - PCV) 1992 HEPATITIS B IMMUNIZATION (1 of 3 - 19+ 3-dose series) 2005 PAP 09/07/2007 PHQ-2 (once per calendar year) 2023 YEARLY PREVENTIVE VISIT 08/01/2023 08/01/2022 INFLUENZA VACCINE (#1) 2024 , 05/01/2021, 05/20/2020 GLUCOSE 11/17/2024 11/17/2021, 08/10, 09/07/2020 DTAP/TDAP/TD IMMUNIZATION (3 - Td or Tdap) 09/18/2031 09/17/2021, 05/20/2020 HEPATITIS C SCREENING Completed 04/04/2023, 021 HIV SCREENING Completed 04/04/2023, 04/12, 04/23/2021 COVID-19 Vaccine Completed 04/21/2023, , 07/22/2020, Additional history exists HPV IMMUNIZATION Aged Out No longer e ligible based on patient's age to complete this topic IPV IMMUNIZATION Aged Out No longer e ligible based on patient's age to complete this topic MENINGITIS IMMUNIZATION Aged Out No l onger eligible based on patient's age to complete this topic RSV MONOCLONAL ANTIBODY Aged Out No l onger eligible based on patient's age to complete this topic Procedures Procedure Name Priority Date/Time Associated Diagnosis [...] will be initiated. Contact lab with questions, [phone]. 12/05/2023 9:14 AM CDT [facility] (LDL) Blood STRUCTURE OF RIGHT UPPER LIMB / Unknown Venipuncture / Unknown 12/04/2023 11:31 AM CDT 12/04/2023 11:31 AM CDT Aleshia Kearns LAB - GENOMICS [facility] (LDL) [facility] [address] [facility], [address] * HIV Antigen Antibody Combo [place] (04/04/2023 10:53 AM CDT) HIV Antigen Antibody Combo Nonreactive Nonreactive 04/05/2023 12:00 PM CDT [facility] DO Comment:HIV-1 p24 Ag & HIV-1 /HIV-2 Ab Not Detected Blood BLOOD SPECIMEN / Unknown Client Draw / Unknown 04/04/2023 10:53 AM CDT 04/04/2023 3:46 PM CDT Gilda May MD LAB - BLOOD ORDERABL ES [facility]ENDO Specialty Core/Prot/Endo [address] [facility], [address] [phone] * Hepatitis C antibody (04/04/2023 10:37 AM [...] ES [facility]ENDO Specialty Core/Prot/Endo [address] [facility], [address] [phone] * (ABNORMAL) Comprehensive metabolic panel (11/17/2021 3:07 AM CDT) Sodium 139 133 - 144 mmol/L 11/17/2021 3:46 AM CDT LABORATORY Potassium 3.7 3.4 - 5.3 mmol/L 11/17/2021 3:46 AM CDT LABORATORY Chloride 111(H) 94 - 109 mmol/L 11/17/2021 3:46 AM CDT LABORATORY Carbon Dioxide (CO2) 26 20 - 32 mmol/L 11/17/2021 3:46 AM CDT LABORATORY Anion Gap 2(L) 3 - 14 mmol/L 11/17/2021 3:46 AM CDT LABORATORY Urea Nitrogen 15 7 - 30 mg/dL 11/17/2021 3:46 AM CDT LABORATORY Creatinine 0.76 0.52 - 1.04 mg/dL 11/17/2021 3:46 AM CDT LABORATORY Calcium 8.5 8.5 - 10.1 mg/dL 11/17/2021 3:46 AM CDT LABORATORY Glucose 112(H) 70 - 99 mg/dL 11/17/2021 3:46 AM CDT LABORATORY Alkaline Phosphatase 146 40 - 150 U/L 11/17/2021 3:46 AM CDT LABORATORY AST 36 0 - 45 U/L 11/17/2021 3:46 AM CDT LABORATORY ALT 73(H) 0 - 50 U/L 11/17/2021 3:46 AM CDT LABORATORY Protein Total 6.7(L) 6.8 - 8.8 g/dL 11/17/2021 3:46 AM CDT LABORATORY Albumin 2.7(L) 3.4 - 5.0 g/dL 11/17/2021 3:46 AM CDT LABORATORY Bilirubin Total 0.4 0.2 - 1.3 mg/dL 11/17/2021 3:46 AM CDT LABORATORY GFR Estimate >90 >60 mL/min/1.7 3m2 11/17/2021 3:46 AM CDT LABORATORY Comment:Effective May 132020 eGFRcr in adults is calculated using the 2020 CKD-EPI creatinine equation which includes age and gender (Karl et al., NEJM, DOI: 10.1056/FIRAyg0656782) Blood BLOOD SPECIMEN / Unknown Venipuncture / Unknown 11/17/2021 3:07 AM CDT 11/17/2021 3:23 AM CDT Martinez rBiones MD LAB - BLOOD ORDERABL ES [facility] [address] (1st floor, no room number) [place] [address], [facility] [phone] from Last 3 Months or Most Recently Relevant to Health Maintenance Advance Directives For more information, please contact: [phone] * Full Code (Latest Code Status on File) Date Activated Date Inactivated Comments 11/11/2021 1:31 PM 11/12/2021 3:43 PM All basic and advanced life-sustaining interventions are performed as appropriate Question Answer Comments Code status determined by: Discussion with janak nt/ legal decision maker * Full Code Date Activated Date Inactivated Comments 11/10/2021 12:21 AM 11/10/2021 11:48 PM All basic an d advanced life-sustaining interventions are performed as appropriate Question Answer Comments Code status determined by: Discussion with janak nt/ legal decision maker Care Teams Freight Manager Relationship Specialty Start Date End Date Gemma Thomson PA-C [facility] [address] [place] [address] PCP - General Physician Fur Scraper 09/07/20 Garett Paulino MD [address] [place] [address] Assigned Pediatric Specialist Provider 08/04/23
--- OUTSIDE RECORDS SUMMARY | 2023-12-22 17:58 | XMS_ITS | Encounter Summary ---
Author Organization [facility] Address [address] [place] [address]. [place] [address] Care Team Providers Care Classer Name Role Phone Gemma Thomson PA-C Primary Care Provider Garett Paulino MD Unavailable [phone] Reason for Referral * Genomics (Routine) - Closed Specialty Diagnoses / Procedures Referred By Josep rios Referred To Contact Diagnoses Family history of genetic disease carrier Procedures Hereditary Genomics Hold For Preauthorization: Domonique Contreras GC [address] [place] [address] Referral ID Status Reason Start Date Expiration Date Visits Re quested Visits Authorized [id number] Closed 10/16/2023 10/15/2024 1 1 Reason for Visit * Reason Onset Date Comments Results 10/12/2023 Cardiomyopathy p con results from IUFD Encounter Details Date Type Department Care Team (Late st Contact Info) Description 10/12/2023 Telephone [facility] Maternal Medicine [facility] [address] [facility] [address] [place] [address] Domonique Contreras GC [address] [place] [address] Results (Cardiomyopathy panel results from IUFD) Social History Tobacco Use Types Packs/Day Years Used Date Smoking Tobacco: Never Smokeless Tobacco: Never Alcohol Use Standard Drinks/Week Comments Not Currently 1 (1 standard drink = 0.6 oz pur e alcohol) [place] Depression Scale Answer Date Recorded Last EPDS [...] file Travel History Travel Start Travel End [place] 11/03/2023 12/04/2023 documented as of this encounter Miscellaneous Notes * Telephone Encounter - Domonique Contreras, - 10/12/2023 3:07 PM CDT October 12, 2023 I called Felisha and left a voicemail requesting that she call me back to discuss genetic testing results from her stillbirth in June. Specifically, I discussed that the results are back for the Custom Cardiomyopathy Panel through [facility]. 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 I disclosed that there were three variants of uncertain significance identified which do not have enough evidence to support being associatedwith disease or benign. I asked for Felisha and Donnell to call me back to review these results in further detail this week or next week. Specific variants include: Pathogenic: MYH7 c.5740G>A (p.[id number]) Variants of uncertain significance: DPP6 c.(1407+1-1408-1)-(1547+1_1548-1)dup OFB78O8 c.1519T>A (p.Bhp535Dnm), DMD c.5680G>C (p.[id number]) October 13, 2023 Felisha left me a voicemail this morning and requested that I call her back at 2 pm today to discuss results as she would be with her partner at that time. I called Felisha at 2 pm and reviewed the results with Felisha and Donnell. We discussed that MYH7 variants are associated with cardiomyopathy conditions. They are also associated with skeletal conditions. We discussed that the genetic etiology of these conditions is from the MYH7 gene encoding for slow/b-cardiac myosin heavy chains that are expressed in the muscle fibers of the heart. Thsi gene is the second most common gene associated with hypertrophic cardiomyopathy. It is associated with other types of cardiomyopathy as well. There have been reported cases of de estevan and inherited MYH7 variants. We discussed that genetic variants associated with cardiomyopathy typically are autosomal dominant with reduced penetrance. This means that not everyone with the genetic variant will have symptoms of cardiomyopathy. We discussed that penetrance often increases with age. We discussed that cardiomyopathy can put someone at risk for sudden . If someone is identified to have a cardiomyopathy genetic change, a cardiology and cardiogenetics referral would be warranted. Felisha and Donnell stated that they are interested in this information to inform future reproductive risk. We discussed that if the variant is identified as inherited there would be a 1 in 2, or 50% chance of every child between the couple having th genetic change. However, not every child would experience a cardiomyopathy or IUFD due to reduced penetrance. We discussed that if the couple are negative for this variant, germline mosaicism cannot be excluded; however, reproductive risks would generally be thought to be lower. The couple consented to a prior authorization order being placed for the familial variant testing through [facility]. We discussed that testing will be sent to insurance. The couple plans to have their blood drawn at [facility]. I sent an email to the couple with directions and hours of the [facility] outpatient lab. We reviewed the Genetic Information Nondiscrimination Act. Genetic test consent was obtained via telephone with Best Pelayo MS, [facility] as a witness. Domonique Contreras MS, [facility] Licensed Genetic Counselor [facility] Pager: [phone] Office: [phone] * Addendum Note - Domonique Contreras GC - 10/12/2023 3:06 PM CDTAddended by: DOMONIQUE CONTRERAS on: 10/16/2023 09:19 AM Modules accepted: Orders documented in this encounter Plan of Treatment Not on file documented as of this encounter Results * Hereditary Genomics Hold For Preauthorization: (12/04/2023 11:31 AM CDT) Interpretation Sample processed in lab for DNA for genetic testing. Insurance preauthorization will be initiated. Contact lab with questions, [phone]. 12/05/2023 9:14 AM CDT [facility] (LDL) Blood STRUCTURE OF RIGHT UPPER LIMB / Unknown Venipuncture / Unknown 12/04/2023 11:31 AM CDT 12/04/2023 11:31 AM CDT Domonique Contreras GC LAB - GENOMICS [facility] (LDL) Molecular Diagnostics [address] [facility], [address] documented in this encounter Visit Diagnoses Diagnosis Family history of genetic disease carrier- Primary documented in this encounter Care Teams Classer Relationship Specialty Start Date End Date Gemma Thomson PA-C [facility] [address] [place] [address] PCP - General Physician Molder Hand 09/07/20 Garett Paulino MD [address] [place] [address] Assigned Pediatric Specialist Provider 08/04/23 documented as of this encounter
--- OUTSIDE RECORDS SUMMARY | 2023-12-22 17:58 | XMS_ITS | Encounter Summary ---
Author Organization [place] Address [address] [place] [address]. [place] [address] Care Team Providers Care Airplane Electrician Name Role Phone Gemma Thomson PA-C Primary Care Provider Garett Paulino MD Unavailable [phone] Encounter Details Date Type Department Care Team (Late st Contact Info) Description 08/28/2023 Orders Only [facility] [place] [address] [address] [place] [address] Alma Rosa Friedman IUFD at 20 weeks or more of gestation; Congenital heart defect Social History Tobacco Use Types Packs/Day Years Used Date Smoking Tobacco: Never Smokeless Tobacco: Never Alcohol Use Standard Drinks/Week Comments Not Currently 1 (1 standard drink = 0.6 oz pur e alcohol) [place] Depression Scale Answer Date Recorded Last EPDS [...] file Travel History Travel Start Travel End [place] 11/03/2023 12/04/2023 documented as of this encounter Plan of Treatment Not on file documented as of this encounter Procedures Procedure Name Priority Date/Time Associated Diagnosis Comments NGS SINGLE GENE Routine 06/29/2023 9:07 AM DESKTOP PUBLISHER IUFD at 20 weeks or more of gestation Congenital heart defect POC/SKIN CULTURE (CYTOGENETICS) Routine 06/29/2023 9:07 AM DESKTOP PUBLISHER IUFD at 20 weeks or more of gestation Congenital heart defect CULTURE ONLY SKIN/TISSUE CYTOGENETICS Routine 06/29/2023 9:07 AM DESKTOP PUBLISHER IUFD at 20 weeks or more of gestation Congenital heart defect NEXT GENERATION SEQUENCING Routine 06/29/2023 9:07 AM DESKTOP PUBLISHER IUFD at 20 weeks or more of gestation Congenital heart defect documented in this encounter Results * NGS Single Gene (06/29/2023 9:07 AM DESKTOP PUBLISHER) Blood TOPOGRAPHY UNKNOWN / Unknown Client Draw / Unknown 06/29/2023 9:07 AM DESKTOP PUBLISHER 08/28/2023 12:44 PM CDT Aleshia Kearns GC LAB CHARGE PERFORMAB LES Performing Organization Address City/[facility]/ZIP Co de Phone Number MOLECULAR DIAGNOSTICS (LDL) Molecular Diagnostics [address] [facility], Room 3-[address] * POC/Skin Culture (Cytogenetics) (06/29/2023 9:07 AM DESKTOP PUBLISHER) Products of Conception PRODUCTS OF CONCEPTION TISSUE SPECIMEN / Unknown Non-blood Collection / Unknown 06/29/2023 9:07 AM DESKTOP PUBLISHER 08/28/2023 5:11 PM CDT Aleshia Kearns GC LAB - BEAKER AP Performing Organization Address City/[facility]/ZIP Co de Phone Number [facility] CYTOGENETICS [facility] Cytogenetics Lab [address] [facility] Room 15-[address] * Culture only skin/tissue cytogenetics (06/29/2023 9:07 AM DESKTOP PUBLISHER) Results A sample labeled products of conception was received in the Cytogenetics Laboratory on 06-29-2023 and set up in multiple in situ cultures. Per the request of Aleshia Kearns MS, [facility], the resulting cells were given to the Molecular Diagnostics Laboratory at the [facility] on 08-28-23 for a Custom Cardiomyopathy panel. A Constitutional Chromosomal Microarray (Copy Number/SNP) with Limited G-band Analysis was also conducted on this sample. Please see [id number] for the results of that study. 08/30/2023 2:24 PM CDT CYTOGENETICS Products of Conception PRODUCTS OF CONCEPTION TISSUE SPECIMEN / Unknown Non-blood Collection / Unknown 06/29/2023 9:07 AM DESKTOP PUBLISHER 08/28/2023 5:11 PM CDT Aleshia Sara Urmila [facility] - BODY FLUIDS OR DERABLES CYTOGENETICS [facility] Cytogenetics Lab [address] [facility] Room 15-[address] * (ABNORMAL) Next Generation Sequencing (06/29/2023 9:07 AM DESKTOP PUBLISHER) Specimen Description 2Flask and Trypsin 06/29/2023 9:[address] [facility]ULAR [facility] (LDL) Significant Results TEST REQUESTED: Custom cardiomyopathy panel on genome backbone Next generation sequencing and copy number variation analysis of genes listed in 'Background' section below. This test was performed on DNA extracted from tissues. This is an unvalidated specimen type and was run as an exception. RESULTS: POSITIVE Pathogenic/Likely Pathogenic Variant(s): One Detected Variant(s) of Uncertain Significance: Three Detected(A) 06/29/2023 9:[address] 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 Pathogenic variants in this gene are associated with autosomal dominant and recessive forms of cardiomyopathy as well as skeletal myopathy. This variant was detected at a variant allele frequency below what is expected for a heterozygote. The presence of this variant was confirmed by Waban sequencing and was consistent with this finding. However, it cannot be determined if this variant is truly mosaic, or if this finding is a result of the quality of DNA from this sample. Parental testing may help to clarify this result and determine if this variant arose de estevan. Of note, three variants of uncertain significance were detected, including a tandem duplication involving exons 14-15 of the DPP6 gene. Clinical correlation and genetic counseling regarding these results is recommended. 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 This variant has been detected in numerous individuals with MYH7-associated phenotypes including dilated cardiomyopathy, hypertrophic cardiomyopathy, and left ventricular noncompaction (PMID: 61550439, [id number], [id number], 11476890). Of note, this variant has been found to occur de estevan (with confirmation of parentage) in two unrelated probands who also demonstrated features of a skeletal myopathy (PMID 30731851). In another family, this variant was shown to segregate in similarly affected siblings with infantile-onset biventricular noncompaction (PMID: 75163597). Multiple submitting laboratories in ClinVar have classified this variant as likely pathogenic/pathog enic. In silico models provide damaging predictions for this variant, however, the accuracy of such models is limited. Based on the available information, this variant is classified as pathogenic. VARIANTS OF UNCERTAIN SIGNIFICANCE: Variants of uncertain clinical significance (VUS) are reported below. These variants cannot be definitively categorized as pathogenic or benign at the present time. Caution should be exercised in ascribing clinical phenotypes to rare variants without additional supporting evidence as the majority of rare/novel human variation is unlikely to cause Mendelian disease [Scotten et al., 2012]. Correlation with clinical phenotype and analysis of other family members might help to clarify the significance of variants listed below. DPP6: [id number]; c.(1407+1-1408-1) -(1547+1_1548-1)d up, (exons 14-15 duplication), Het, Uncertain Significance The c.(1407+1-1408-1) -(1547+1_1548-1)d up variant results in a duplication of exons 14-15 of the DPP6 gene. It has yet to be determined if duplications are a clear mechanism for DPP6-related disorders. This variant is absent from the gnomAD v4.1.0 structural variant (63,000 samples) and copy number variant (464,000 samples) control database. It has also not been reported in the relevant medical literature or locus-specific databases. Based upon the available evidence, this variant is classified as a variant of uncertain significance. RTZ22S3: NM_022902.5; c.1519T>A (p.Qez913Pse), Het, Uncertain Significance The c.1519T>A missense variant in BOO36M2 results in a p.Byr168Emd substitution. In the gnomAD (v4.0.0) database of approximately 800,000 controls, 1051 individuals are heterozygous and three individuals are homozygous for this variant (overall frequency of 0.066%). In silico prediction models provide conflicting evidence; however, the accuracy of such models is limited. It has not been reported in locus-specific databases or the relevant medical literature. Based upon the available evidence, this variant is classified as a variant of uncertain significance. DMD: NM_004006.3; c.5680G>C (p.Rri6388Vnf), Het, Uncertain Significance The c.5680G>C missense variant in DMD results in a p.Osk4293Afs substitution. In the gnomAD (v4.0.0) database of approximately 800,000 controls, three individuals are heterozygous for this variant and two individuals are hemizygous. This variant has been reported as a variant of uncertain significance by multiple submitting laboratories in ClinVar. In silico prediction models provide conflicting evidence; however, the accuracy of such models is limited. This variant has not been reported in the relevant medical literature. Based upon the available evidence, this variant is classified as a variant of uncertain significance. 06/29/2023 9:[address] [facility] (LDL) Lab PDF Result 06/29/2023 9:[address] [facility] (LDL) Test Details BACKGROUND: Cardiomyopathy - Genome Backbone Panel: ABCC9, ACTC1, ACTN2, AGK, ALMS1, ALPK3, ANKRD1, BAG3, BAG5, BRAF, C1QBP, CALR3, CAP2, CASZ1, CAV3, CAVIN4, CBL, CDH2, CHRM2, CRYAB, CSRP3, CTF1, CTNNA3, CHARLETTE, DMD, DNAJC19, DOLK, DPP6, DSC2, DSG2, DSP, DTNA, ELAC2, EMD, EYA4, FBXO32, FHL1, FHL2, FHOD3, FKRP, FKTN, FLNC, FNIP1, FOXD4, GAA, GATAD1, GET3, GLA, GTPBP3, HAND1, HAND2, HCN4, HRAS, ILK, JPH2, JUP, KIF20A, KIF5B, KLHL24, KRAS, LAMA4, LAMP2, LDB3, LMNA, LMOD2, LRRC10, LZTR1, MAP2K1, MAP2K2, MCM10, MIB1, MRAS, MTO1, MYBPC3, MYBPHL, MYH6, MYH7, MYL2, MYL3, MYLK2, MYO6, MYOM1, MYOZ2, MYPN, MYZAP, NDUFB7, NEBL, NEXN, NF1, NKX2-5, NRAP, NRAS, OBSCN, PDLIM3, PKP2, PLEKHM2, PLN, PPCDC, PPCS, PPP1CB, EZR9I03M, PRDM16, PRKAG2, ARMPE9B, PSEN1, PSEN2, PTPN11, RAF1, RASA2, RBM20, RIT1, RPL3L, RRAS, RYR2, SCN5A, SCO2, SDHA, SGCD, SGCG, SHOC2, RRL68Y0, SOS1, SOS2, TANGO2, CASIMIRO, TBX20, TCAP, TGFB3, TGFBR2, TMEM43, TMPO, TNNC1, TNNI3, TNNI3K, TNNT2, TPM1, TTN, TTR, TXNRD2, VCL, VEZF1 When indicated, EPCAM and GREM1 are analyzed for copy number variants only; the promoter regions of APC, BMPR1A, BRCA1, BRCA2, MLH1, MSH2, PTEN, SMAD4, and TP53 are analyzed for sequence variants; the promoter regions of APC, BMPR1A, BRCA1, BRCA2, GREM1, PTEN, and TP53 are analyzed for copy number variants. MSH2, when requested, is analyzed for the exon 1-7 (Gwen) inversion by next generation sequencing, and if detected, is confirmed by PCR analysis using methods described by Rosa et al. [2002]. Due to the presence of a highly homologous pseudogene, variants in exons 12-15 of PMS2 are unable to be analyzed by this assay. COVERAGE: This analysis is limited to the coding exons and immediately adjoining intronic sequences of the analyzed genes. Coverage is only guaranteed for biologically relevant transcripts, as defined in the G database. Coverage minimums are not guaranteed for intronic positions. Therefore, intronic variants cannot be confirmed or excluded with the same degree of confidence as coding exonic variants. With the exception of a limited set of known pathogenic variants, sequences residing more than 25 base pairs from a coding exon are not routinely analyzed. A list of these supplemental positions is available upon request. The proportion of coding bases covered at 15x and 20x coverage are reported below. Sensitivity is reduced in regions with less than 20x coverage, and variants cannot be confidently excluded in regions with <15x coverage. A list of specific regions not meeting these minimum thresholds is available upon request. Percentage of 'sequenceable' bases in reflex genes covered at 15x: 99.38 Percentage of 'sequenceable' bases in reflex genes covered at 20x: 97.54 METHODOLOGY: [Meg et al., 2015][Blu et al., 2014]: This testing was performed using a whole genome sequencing backbone, with informatic filtering to the requested genes in this panel. Genomic DNA is extracted using the QIAamp DNA Blood Midi Kit or QIAamp DNeasy Blood and Tissue kit. Following DNA quantification, library creation is performed using Illumina whole genome DNA prep reagents. DNA sequencing is performed at the [facility] on an Illumina Kaseyaq or InstyBookq instrument with paired-end 150 base pair reads. Reads are mapped to the human genome reference sequence HG19 using the BWA algorithm and variant calling is performed with the GATK4.1 genotyper. Variants are interpreted according to guidance issued by the [place] [employer] (Reece et al.2015). Structural variant calls (deletions and duplications) were made using the ICONOGRAFICOeq software package. This package utilizes the Lumpy algorithm to assess breakpoint evidence and the CNVnator algorithm to assess for read-depth evidence. Sequence variants and copy number variants are restricted to the requested genes using a validated custom script. Variants in other regions of the genome are not analyzed as part of this testing. Pathogenic and predicted pathogenic variants that meet ALL of the following criteria are reported without validation by Waban sequencin- single nucleotide substitution, 2- receives a PASS from the SNP or indel filter, 3- has a VAF in the accepted range (heterozygous = 0.3-0.6, homozygous/hemizy gous >0.9), 4- has a minimum of 20x coverage. Pathogenic variants that fail to meet any of these criteria are verified by [place] sequencing prior to reporting [Sadiq et al., 2015]. The following types of variants are not included in the clinical report, but information about these variants is available upon request: *Missense variants that are present at >1% MAF in population databases AND are not reported as pathogenic/likely pathogenic in ClinVar. *Missense variants with a MAF <1% that are classified as benign or likely benign according to published ACMG criteria. *Synonymous variants that do not occur at an intron/exon boundary, are not reported as pathogenic/likely pathogenic in relevant clinical databases, and are present in 15 or more individuals in gnomAD. *Intronic variants that reside more than 5 bps from an intron/exon boundary AND are not reported as pathogenic/likely pathogenic in ClinVar. Known pathogenic variants residing 5-25 bps from an intron/exon boundary will be reported. *Untranslated region (UTR) variants not previously reported as pathogenic/likely pathogenic in relevant clinical databases. *Some variants may be excluded based on review of sequencing quality data. It is possible that some low quality variants are, in fact, real. LIMITATIONS: This analysis has not been validated for detection of insertion/deletio n mutations larger than 18bp in length. The size of polymorphic repetitive sequences, such as CAG repeats, intronic dinucleotide repeats, or intronic polyT/polyA sequences, cannot be determined by this analysis. Due to issues with GC content, the presence of a pseudogene, and/or repetitive sequences, detection of sequence and/or copy number variants is not possible in a limited number of regions, even when coverage exceeds 20x. Each of the following genes contains one or more exons that cannot be adequately analyzed due to these issues: CCDC40, DYLAN, CES1, CISD2, DSPP, ESPN, FMN2, GCSH1, GNAS, GP1BA, HYDIN, KMT2C, KRT8, KOLBY, MUC5B, NEFH, OTOA, PKD1, PPA2, PSPH, RBMX, RP1L1, RPS17, SHANK3, SP110, STRC, TRIOBP, TTN, EJW360. A list of genes with a highly similar homolog or pseudogene for which specificity/sensi tivity may be reduced is available at https://www.ncbi. nlm.nih.gov/books /OSO633309/. Additional details are available upon request. REFERENCES: Sadiq POWERS, Fabian M, Bright LB, Kathi C, Blu G, et al. 2015. Criteria for Clinical Reporting of Variants from a Broad Target Capture NGS Assay without [place] Verification. JSM biomarkers 2(1):1005. Blu Russell, Charles Barton, Alicia HERNANDEZ, Bryant Barton, Rebeca PENN, Rosalba Baker, Meg Louie, Janet Samuel, Fabian Samuel, Alma GONSALEZ, Manoj Coronel. 2014. Implementation of Banks based next generation sequencing data analysis in a clinical laboratory. BMC Res Notes. 7:314. PMID: 30708763. Shanell S, Montserrat N, Bernard S, Syeda D, Theron S, Joanne J, Viviana WW, Maricruz Samuel, Natanael E, Yonas E, Osbaldo K, [facility] HL, [facility] Laboratory Bump Grader Operator Committee. 2015. Standards and guidelines for the interpretation of sequence variants: a joint consensus recommendation of the [place] [employer] and Genomics and the Association for Molecular Pathology. Leslie. Med. 17(5):405-24. PMID: 15436151. Annika JA, Doug AW, O'Frank TD, Ezra W, Misha EE, Paddy S, Mauro S, Do R, More X, Jimy G, Nunez HM, Igor D, Jimmy SM, Dimas S, Paul MJ, Radha G, Altshmagdy D, Virginia DA, Kam E, Sunqamar S, Re CD, Belia MJ, Caridad JM, [facility] GO, [place] GO, [facility] Exome Sequencing Project. 2012. Evolution and functional impact of rare coding variation from deep sequencing of human exomes. Science. 337(0996):64-9. PMID: 26409603. Moe A, van peyton Saravanan H, Saumya P, Afua J, Flora C, Lori V, Katey R, Woodrow Y, Carmine A, Armando B, Powers J, Powers H, Fogurdeepe R. 2002. A 10-Mb paracentric inversion of chromosome arm 2p inactivates MSH2 and is responsible for hereditary nonpolyposis colorectal cancer in a [place] sam[place]. Genes Chromosomes Cancer. 35(1):49-57. PMID: 24822743. Meg Louie, Rosalba Baker, Tani Gonzalez, Carlos Champion, Fabian Samuel, Janet Samuel, Blu Russell, Charles Mccall J, Jimmy Y, Zee Baker, Alicia HERNANDEZ, Rebeca Gonzalez, Alma KA, Manoj Coronel. 2015. Clinical validation of targeted next-generation sequencing for inherited disorders. Arch. Pathol. Lab. Med. 139(2):204-10. PMID: 29040317. If a patient is the recipient of an allogeneic bone marrow transplant, this test must be done on a pretransplant sample or buccal swab. A previous allogeneic bone marrow transplant will interfere with test results. Call the [facility] ([phone]) for instructions on sample collection for these patients. This test was developed and its performance characteristics determined by the [facility], Molecular Diagnostics Laboratory and the [facility] (Cancer and Cardiovascular Research Building Room 1210, [address] [place] [address]). Genomic DNA extraction, interpretation of sequencing data, and, when necessary, Waban sequencing is performed at [facility], Molecular Diagnostics Laboratory. Wet bench processes including library creation, sequence capture using an [employer] analyzer and bioinformatics is performed at the [facility]. It has not been cleared or approved by the FDA. The laboratory is regulated under CLIA as qualified to perform high-complexity testing. This test is used for clinical purposes. It should not be regarded as investigational or for research. 06/29/2023 9:[address] [facility] (LDL) Signout Location if Remote Report signed out at: [facility] 06/29/2023 9:[address] [facility] (LDL) Blood TOPOGRAPHY UNKNOWN / Unknown Client Draw / Unknown 06/29/2023 9:07 AM DESKTOP PUBLISHER 08/28/2023 12:44 PM CDT Aleshia Kearns GC LAB - GENOMICS MOLECULAR DIAGNOSTICS (LDL) [facility] [address] [facility], Room 3-[address] documented in this encounter Visit Diagnoses Diagnosis IUFD at 20 weeks or more of gestation Congenital heart defect Unspecified congenital anomaly of heart documented in this encounter Care Teams Airplane Electrician Relationship Specialty Start Date End Date Gemma Thomson PA-C [facility] [address] [place] [address] PCP - General Physician Electric Hoist Operator 09/07/20 Garett Paulino MD [address] [place] [address] Assigned Pediatric Specialist Provider 08/04/23 documented as of this encounter
--- OUTSIDE RECORDS SUMMARY | 2023-12-22 17:58 | XMS_ITS | Encounter Summary ---
Author Organization [facility] Address [address] [place] [address]. [place] [address] Care Team Providers Care Administrative Support Specialist Name Role Phone Gemma Thomson PA-C Primary Care Provider Lise Rodriguez MD Unavailable [phone] Dio Miramontes MD Unavailable [phone] Garett Paulino MD Unavailable [phone] Encounter Details Date Type Department Care Team (Late st Contact Info) Description 08/20/2021 External Order Results [facility] [address] [place] [address] Outside, Provider Social History Tobacco Use Types [...] Procedure Name Priority Date/Time Associated Diagnosis Comments TREPONEMA ABS W REFLEX TO RPR AND TITER Routine 08/20/2021 3:45 PM RESIDENTIAL REAL ESTATE AGENT HEMOGLOBIN Routine 08/20/2021 3:45 PM RESIDENTIAL REAL ESTATE AGENT GLUCOSE Routine 08/20/2021 3:45 PM RESIDENTIAL REAL ESTATE AGENT documented in this encounter Results * Treponema Abs w Reflex to RPR and Titer (08/20/2021 3:45 PM RESIDENTIAL REAL ESTATE AGENT) Treponema [place] Antibody (External) Non Reactive NON REACTIVE NON-INTERFAC ED (ONBASE SCANS) Blood 08/20/2021 3:45 PM RESIDENTIAL REAL ESTATE AGENT Narrative BREEZE PFT - 08/25/2021 7:40 AM CDT Verified by Lino Mondragon on 08/25/2021. Provider Outside LAB - BLOOD ORDERABL ES BREEZE PFT NON-INTERFACED (ONBASE SCANS) * Glucose (08/20/2021 3:45 PM RESIDENTIAL REAL ESTATE AGENT) Glucose (External) 122 65 - 139 mg/dL NON-INTERFACED (ONBASE SCANS) Blood 08/20/2021 3:45 PM RESIDENTIAL REAL ESTATE AGENT Narrative BREEZE PFT - 08/25/2021 7:40 AM CDT Verified by Lino Mondragon on 08/25/2021. Provider Outside LAB - BLOOD ORDERABL ES Performing Organization Address [facility]/ZIP Co de Phone Number BREEZE PFT NON-INTERFACED (ONBASE SCANS) * Hemoglobin (08/20/2021 3:45 PM RESIDENTIAL REAL ESTATE AGENT) Hemoglobin (External) 12.2 11.1 - 15.9 g/dL NON-INTERFACED (ONBASE SCANS) Blood 08/20/2021 3:45 PM RESIDENTIAL REAL ESTATE AGENT Narrative BREEZE PFT - 08/25/2021 7:40 AM CDT Verified by Lino Mondragon on 08/25/2021. Provider Outside LAB - BLOOD ORDERABL ES Performing Organization Address [facility]/ZIP Co de Phone Number BREEZE PFT NON-INTERFACED (ONBASE SCANS) documented in this encounter Visit Diagnoses Not on filedocumented in this encounter Care Teams Administrative Support Specialist Relationship Specialty Start Date End Date Gemma Thomson PA-C [facility] [address] [place] [address] PCP - General Physician Lead Business Systems Analyst 09/07/20 Lise Rodriguez MD [address] [address] Assigned OBGYN Provider 07/11/21 Dio Miramontes MD [address] [address] Assigned OBGYN Provider 01/08/2203/31 Garett Paulino MD [facility] [id number] Assigned Pediatric Specialist Provider 08/04/23 documented as of this encounter
== END 2023-12-22 08:46 | disposition home or self-care (01) ==
PROVIDERS: PCP Physician Assistant Medical; Referring Provider Physician Assistant Medical; Visit Provider Physician Assistant Medical
DX: Z00.00 Encounter for general adult medical examination without abnormal findings (principal); E78.5 Hyperlipidemia, unspecified; D72.819 Decreased white blood cell count, unspecified; F41.9 Anxiety disorder, unspecified
CPT/HCPCS: 80053; 80061; 82306; 84443